=== PATIENT | male | born 1985 ===

== ENCOUNTER 2019-09-22 23:30 | Emergency (ER) | payer OTHER ==
[~2019-09-22] VITALS: Ht 172.7 cm; Wt 79.4 kg
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
[2019-09-22] MEDS ORDERED: SILVER SULFADIAZINE 1% CREAM 25 GM TUBE TP ONE (23:59)
[2019-09-23] MEDS ORDERED: SILVER SULFADIAZINE 1% CREAM 50 GM TP ONE
[2019-09-23 00:08] VITALS: BP 119/78
== END 2019-09-23 00:10 | disposition home or self-care (01) ==
LOC: ER 23:32
DX: T23.211A Burn of second degree of right thumb (nail), initial encounter (principal); T31.0 Burns involving less than 10% of body surface; T79.9XXA Unspecified early complication of trauma, initial encounter; X08.8XXA Exposure to other specified smoke, fire and flames, initial encounter; Y93.89 Activity, other specified; Y92.89 Other specified places as the place of occurrence of the external cause; Y99.8 Other external cause status
CPT/HCPCS: 16020; A4663